=== PATIENT | male | born 1980 | race African-American/Black ===

== ENCOUNTER 2021-04-30 07:32 | Day surgery (SDC) | payer OTHER ==
[2021-04-30] VITALS (9 sets, daily range): BP systolic 102–134; BP diastolic 50–80
[~2021-04-30] VITALS: Ht 185.4 cm; Wt 85.0 kg
--- NOTE | 2021-04-30 07:45 | NUR ---
PATIENT AMBULATORY TO ROOM. PATIENT IS ALERT AND ORIENTED X3. VITAL SIGN OBTAINED. DR SHUKLA NOTIFIED. CONSENT OBTAINED. ADMISSION ASSESSMENT COMPLETED. IV ESTABLISHED. LABS OBTAINED AND SENT TO LAB FOR REFERENCE. PATIENT ORIENTED TO ROOM AND UNIT. CALL LIGHT IN REACH. WILL CONTINUE TO MONITOR.
[2021-04-30 09:24] LABS: HEMATOCRIT 40.9 % (39.0-50.0); HEMOGLOBIN 12.6 g/dl (14.0-18.0); MEAN CELL VOLUME 91.5 fL CALC (80.0-100.0); MEAN CORPUSCULAR HGB 28.2 pG CALC (26.0-32.0); MEAN CORPUSCULAR HGB CONC 30.8 g/dL CAL (32.0-36.0); NEUT# 2.37 thou/uL (1.82-7.42); RED BLOOD COUNT 4.47 mill/uL (4.70-6.10); RED CELL DISTRI WIDTH 16.1 % (11.5-15.5)
--- NOTE | 2021-04-30 09:55 | NUR ---
vitals signs obtained. dr camp notified no new orders received dr camp at bedside at at this time.
[2021-04-30 11:56] LABS: ALBUMIN 4.7 g/dL (3.2-5.0); ALKALINE PHOSPHATASE 59 u/l (38-126); ANION GAP 12 (6-22 (CALC)); BILIRUBIN, TOTAL 0.6 mg/dL (0.0-1.4); BUN 12 mg/dL (9-20); BUN/CREATININE RATIO 11 (12-20 (CALC)); CARBON DIOXIDE 30 mmol/l (22-30); CHLORIDE 101 mmol/l (95-108); CREATININE 1.1 mg/dL (0.7-1.3); GFR > 60 ML/MIN (>=60 (CALC)); GFR FOR AFR.AMER. > 60 ML/MIN (>=60 (CALC)); POTASSIUM 4.1 mmol/l (3.5-5.1); SGOT/AST 59 u/l (17-59); SODIUM 138 mmol/l (137-146); TOTAL PROTEIN 8.2 g/dL (6.3-8.2)
--- NOTE | 2021-04-30 12:00 | NUR ---
PATIENT TO ANR PROCEDURE VIA BED.
--- NOTE | 2021-04-30 17:21 | NUR ---
PT ARRIVED TO ROOM 272 VIA BED. RECIEVED REPORT FROM JEAN DAVIS. PT SLEEPING. POST OP VITALS OBTAINED. RESPIRATIONS ARE EVEN AND UNLABORED 94% ON 3L NC. HEART RHYTHM NORMAL. NO SIGNS OF ANY PAINS OR DISCOMFORTS AT THIS TIME. #20G RAC INFUSING WITH IVF PER ORDER. #18G LAC FLUSHED, SITE APPEARS HEALTHY AND PATENT. NO SIGNS OF ANY PAINS OR DISCOMFORTS AT THIS TIME. BED ALARM ACTIVE. ALL SAFETY PRECAUTIONS ARE IN PLACE. WILL CONTINUE TO MONITOR
--- NOTE | 2021-04-30 18:50 | NUR ---
MEREDITH RECEIVED FROM MICHI WELCH.
--- NOTE | 2021-04-30 19:39 | NUR ---
ASSESSMENT COMPLETE. PATIENT LYING IN BED, A LITTLE RESTLESS. DENIES PAIN AT THIS TIME. BED IN LOW POSITION, LOCKED. BED ALARM ACTIVATED. CALL LIGHT WITHIN REACH.
--- NOTE | 2021-04-30 23:24 | NUR ---
PATIENT RESTING QUIETLY IN BED. NO DISTRESS NOTED. CATAPRES HELD, BP 111/61. NO COMPLAINTS OF PAIN AT THIS TIME. CALL LIGHT WITHIN REACH.
[2021-05-01 04:00] VITALS: BP 116/56
--- NOTE | 2021-05-01 04:00 | NUR ---
PATIENT RESTING QUIETLY IN BED. VSS. NO DISTRESS NOTED. CALL LIGHT WITHIN REACH.
[2021-05-01 05:49] LABS: ALKALINE PHOSPHATASE 52 u/l (38-126); ANION GAP 12 (6-22 (CALC)); BILIRUBIN, TOTAL 0.5 mg/dL (0.0-1.4); BUN 12 mg/dL (9-20); BUN/CREATININE RATIO 10 (12-20 (CALC)); CARBON DIOXIDE 26 mmol/l (22-30); CHLORIDE 108 mmol/l (95-108); CREATININE 1.3 mg/dL (0.7-1.3); GFR > 60 ML/MIN (>=60 (CALC)); GFR FOR AFR.AMER. > 60 ML/MIN (>=60 (CALC)); MAGNESIUM 2.2 mg/dL (1.6-2.3); POTASSIUM 4.7 mmol/l (3.5-5.1); SGOT/AST 33 u/l (17-59); SODIUM 141 mmol/l (137-146); TOTAL PROTEIN 7.2 g/dL (6.3-8.2)
[2021-05-01 08:04] VITALS: BP 102/56
--- NOTE | 2021-05-01 08:04 | NUR ---
ASSESSMENT DONE. PATIENT IS SLEEPY BUT ALERT WHEN SPEAKING TO HIM. RESPS EVEN AND UNLABORED. VS OBTAIN. DENIES PAIN. PATIENT WAS ABLE TO EAT HIS BREAKFAST. PATIENT DENIES NEEDS AT THIS TIME. SAFETY PRECAUTIONS REINFORCED AND CALLL LIGHT IN REACH. BED ALARM IN PLACE. CALLED DR. MONTEIRO ABOUT VS ORDERS RECEIVED.
--- NOTE | 2021-05-01 09:47 | NUR ---
PATIENT IS SITTING IN THE SIDE OF THE BED. STATED HE WANTS TO TAKE A SHOWER. PATIENT STATED WHY DO I FEEL LETHARGIC. EXPLAIN TO PATIENT THAT HE HAD THE ANR PROCEDURE YESTERDAY. SET UP PATIENT FOR A SHOWER. PATIENT DENIES ANY OTHER NEEDS AT THIS TIME. CALL LIGHT IN REACH.
[2021-05-01 10:05] VITALS: BP 88/54
--- NOTE | 2021-05-01 10:05 | NUR ---
STAND BY ASSIST FOR PATIENT TO SIT IN THE RECLINER. PATIENT WEARING HIS OWN CLOTHES. PATIENT STATED HE FEELS DROWSY. VS OBTAIN. CALL LIGHT IN REACH.
--- NOTE | 2021-05-01 10:23 | NUR ---
NOTIFIED DR. MONTEIRO ABOUT BP- 88/54 AND BOLUS STARTED PER ORDER. ORDERS RECEIVED.
[2021-05-01 10:57] VITALS: BP 94/55
[2021-05-01] MEDS ORDERED: CLONIDINE0.1 MG PO (11:12)
[2021-05-01] MEDS ORDERED: KLONOPIN0.5 MG PO (11:14)
--- NOTE | 2021-05-01 11:16 | NUR ---
PATIENT IS SITTING IN RECLINER EATING HIS LUNCH. PATIENT STATED HE IS READY TO GO HOME. PATIENT DENIES ANY OTHER NEEDS. CALL LIGHT IN REACH.
--- NOTE | 2021-05-01 12:48 | NUR ---
Discharge instructions given. Patient verbalizes understanding of same. Discharged in stable condition via Ambulatory to Home with [facility] staff. All belongings sent with pt.
== END 2021-05-01 12:48 | disposition home or self-care (01) | DRG 897 ==
LOC: ANR 07:32 → MS2 07:35 → ANR 12:02
PROVIDERS: ATTEND Anesthesiology
DX: F11.20 Opioid dependence, uncomplicated (principal)
CPT/HCPCS: J2354; J3475

== ENCOUNTER 2022-02-18 07:25 | Day surgery (SDC) | payer OTHER ==
[2022-02-18] VITALS (204 sets, daily range): BP systolic 99–150; BP diastolic 50–119
[~2022-02-18] VITALS: Ht 182.9 cm; Wt 74.0 kg
[~2022-02-18 07:25] MED LIST: CLONIDINE0.1 MG PO; KLONOPIN0.5 MG PO
[2022-02-18 07:41] LABS: HEMATOCRIT 39.2 % (39.0-50.0); HEMOGLOBIN 11.9 g/dl (14.0-18.0); MEAN CELL VOLUME 100.5 fL CALC (80.0-100.0); MEAN CORPUSCULAR HGB 30.5 pG CALC (26.0-32.0); MEAN CORPUSCULAR HGB CONC 30.4 g/dL CAL (32.0-36.0); NEUT# 1.25 thou/uL (1.82-7.42); RED BLOOD COUNT 3.9 mill/uL (4.70-6.10)
[2022-02-18 08:02] LABS: ALBUMIN 4.2 g/dL (3.2-5.0); ALKALINE PHOSPHATASE 61 u/l (38-126); ANION GAP 7 (6-22 (CALC)); BILIRUBIN, TOTAL 0.3 mg/dL (0.0-1.4); BUN 14 mg/dL (9-20); BUN/CREATININE RATIO 14 (12-20 (CALC)); CARBON DIOXIDE 29 mmol/l (22-30); CHLORIDE 105 mmol/l (95-108); GFR FOR AFR.AMER. > 60 ML/MIN (>=60 (CALC)); GFR OTHER RACES > 60 ML/MIN (>=60 (CALC)); POTASSIUM 4.3 mmol/l (3.5-5.1); SGOT/AST 34 u/l (17-59); SODIUM 136 mmol/l (137-146); TOTAL PROTEIN 7.1 g/dL (6.3-8.2)
[2022-02-18] MEDS ORDERED: CLONIDINE0.1 MG PO (14:45)
[2022-02-18] MEDS ORDERED: KLONOPIN2 MG HM (14:46)
[2022-02-18] MEDS ORDERED: NALTREXONE50 MG PO (14:46)
[2022-02-19 04:16] VITALS: BP 112/64
[2022-02-19 05:05] LABS: HEMATOCRIT 42.4 % (39.0-50.0); HEMOGLOBIN 13.6 g/dl (14.0-18.0); MEAN CORPUSCULAR HGB 31.1 pG CALC (26.0-32.0); MEAN CORPUSCULAR HGB CONC 32.1 g/dL CAL (32.0-36.0); NEUT# 5.2 thou/uL (1.82-7.42); RED BLOOD COUNT 4.37 mill/uL (4.70-6.10); RED CELL DISTRI WIDTH 16.9 % (11.5-15.5)
[2022-02-19 05:21] LABS: ALBUMIN 4.2 g/dL (3.2-5.0); ALKALINE PHOSPHATASE 59 u/l (38-126); ANION GAP 10 (6-22 (CALC)); BILIRUBIN, TOTAL 0.3 mg/dL (0.0-1.4); BUN 13 mg/dL (9-20); BUN/CREATININE RATIO 12 (12-20 (CALC)); CARBON DIOXIDE 26 mmol/l (22-30); CHLORIDE 111 mmol/l (95-108); CREATININE 1.1 mg/dL (0.7-1.3); GFR FOR AFR.AMER. > 60 ML/MIN (>=60 (CALC)); GFR OTHER RACES > 60 ML/MIN (>=60 (CALC)); MAGNESIUM 2.2 mg/dL (1.6-2.3); POTASSIUM 4.5 mmol/l (3.5-5.1); SGOT/AST 31 u/l (17-59); SODIUM 142 mmol/l (137-146); TOTAL PROTEIN 7.5 g/dL (6.3-8.2)
[2022-02-19 09:00] VITALS: BP 89/58
[2022-02-19 10:17] VITALS: BP 89/58
== END 2022-02-19 14:25 | disposition home or self-care (01) | DRG 897 ==
LOC: ANR 07:25 → MS2 07:26 → ANR 13:36
PROVIDERS: ATTEND Anesthesiology
DX: F11.20 Opioid dependence, uncomplicated (principal)
CPT/HCPCS: J2354; J3475